=== PATIENT | male | born 1980 | race Caucasian/White ===

== ENCOUNTER 2017-02-11 18:12 | Emergency (ER) | payer BC ==
[2017-02-11] MEDS ORDERED: Sodium Chloride 0.9% 10 ML Syringe FLUSH PRN (18:50)
[2017-02-11] MEDS ORDERED: Ketorolac 30 MG/ML SDV IVPUSH ONE (18:50)
[2017-02-11] MEDS ORDERED: Ondansetron 4 MG/2 ML SDV IVPUSH ONE (18:50)
[2017-02-11] MEDS ORDERED: Iopamidol 612 MG/ML 150 ML Bottle IVPUSH ONE (19:28)
[2017-02-11] MEDS ORDERED: Diatrizoate Meglumine/Diatrizoate Sodium 37% 120 ML Bottle PO ONE (19:29)
--- NOTE | 2017-02-11 19:55 | EDM.PDOC ---
ED HPI GENERAL MEDICAL PROBLEM - General Chief Complaint: Abdominal Pain Stated Complaint: POSS HERNIA Time Seen by Provider: 02/11/17 18:43 Source of Information: Reports: Patient History Limitations: Reports: No Limitations - History of Present Illness INITIAL COMMENTS - FREE TEXT/NARRATIVE: 36 year old male presents for evaluation treatment of left lower quadrant abdominal pain. Reports that the abdominal pain started on Saturday. Reports he was lifting a piano up some stairs. Since then he has had some discomfort in the left lower quadrant that has radiated down to his left groin into his left testicle. No bulging or obvious hernia. He states that he feels like he was "kicked in the crouch ". No abwy-lzh-doxjqnt treatment such as Tylenol or Motrin prior to arrival. He reports associated symptoms of nausea. No fevers, vomiting, diarrhea, constipation, dysuria or hematuria. Reports he did make the appointment with his primary care provider for tomorrow. However, he states that he had a reading about strangulate hernias and was concerned he had with these. Past surgical history includes an appendectomy. Treatments DRIVER GUIDE: Reports: Other (see below) Other Treatments DRIVER GUIDE: none Left Lower Groin Pain Score (Numeric/FACES): 7 - Related Data Allergies Allergy/AdvReac Type Severity Reaction Status Date / Time No Known Allergies Allergy Verified 02/11/17 18:29 Home Meds: Home Meds . [No Known Home Meds] 02/11/17 [History] Past Medical History - Past Surgical History HEENT Surgical History: Reports: Oral Surgery GI Surgical History: Reports: Appendectomy Musculoskeletal Surgical History: Reports: Arthroscopic Knee Social & Family History - Tobacco Use Smoking Status *Q: Never Smoker - Caffeine Use Caffeine Use: Reports: Coffee, Soda, Tea - Recreational Drug Use Recreational Drug Use: No ED ROS GENERAL - Review of Systems Review Of Systems: See Below Constitutional: Reports: Malaise. Denies: Fever GI/Abdominal: Reports: Abdominal Pain (LLQ), Nausea. Denies: Vomiting : Reports: No Symptoms. Denies: Dysuria, Flank Pain Musculoskeletal: Reports: Back Pain (reports low back pain) ED EXAM, GI/ABD - Physical Exam Exam: See Below Exam Limited By: No Limitations General Appearance: Alert, WD/WN, No Apparent Distress Respiratory/Chest: No Respiratory Distress, Lungs Clear Cardiovascular: Normal Peripheral Pulses, Regular Rate, Rhythm, No Murmur GI/Abdominal Exam: Normal Bowel Sounds, Tender (LLQ). No: Hernia Neurological: Alert, Oriented, Normal Cognition Psychiatric: Normal Affect, Normal Mood Skin Exam: Warm, Dry, Normal Color. No: Erythema Course - Vital Signs Last Recorded V/S: Last Vital Signs Temp 36.4 C 02/11/17 18:33 Pulse 70 02/11/17 18:33 Resp 20 02/11/17 18:33 BP 151/82 H 02/11/17 18:33 Pulse Ox 100 02/11/17 18:33 - Orders/Labs/Meds Orders: Active Orders 24 hr Category Date Time Status Peripheral IV Care [RC] . DIRECTED Care 02/11/17 18:51 Active Sodium Chloride 0.9% [Saline Flush] Med 02/11/17 18:50 Active 10 ml FLUSH ASDIRECTED PRN Peripheral IV Insertion Adult [OM.PC] Routine Oth 02/11/17 18:50 Ordered Medication Orders Sodium Chloride (Saline Flush) 10 ml FLUSH ASDIRECTED PRN PRN Reason: Keep Vein Open Last Admin: 02/11/17 19:08 Dose: 10 ml Labs: Laboratory Tests 02/11/17 02/11/17 02/11/17 Range/Units 19:05 19:05 19:05 WBC 7.06 (4.23-9.07) K/mm3 RBC 5.07 (4.63-6.08) M/mm3 Hgb 15.2 (13.7-17.5) gm/L Hct 42.8 (40.1-51.0) % MCV 84.4 (79.0-92.2) fl MCH 30.0 (25.7-32.2) pg MCHC 35.5 (32.2-35.5) g/dl RDW Std Deviation 38.8 (35.1-43.9) fL Plt Count 262 (163-337) K/mm3 MPV 10.3 (9.4-12.3) fl Neutrophils % (Manual) 53 (40-60) % Band Neutrophils % 0 (0-10) % Lymphocytes % (Manual) 34 (20-40) % Atypical Lymphs % 0 % Monocytes % (Manual) 8 (2-10) % Eosinophils % (Manual) 4 (0.8-7.0) % Basophils % (Manual) 1 (0.2-1.2) Platelet Estimate Adequate RBC Morph Comment Normal Sodium 143 (136-145) mEq/L Potassium 3.8 (3.5-5.1) mEq/L Chloride 103 (98-107) mEq/L Carbon Dioxide 31 (21-32) mEq/L Anion Gap 12.8 (5-15) BUN 15 (7-18) mg/dL Creatinine 1.1 (0.7-1.3) mg/dL Est Cr Clr Drug Dosing 91.05 mL/min Estimated GFR (MDRD) > 60 (>60) mL/min BUN/Creatinine Ratio 13.6 L (14-18) Glucose 103 (74-106) mg/dL Calcium 9.3 (8.5-10.1) mg/dL Total Bilirubin 0.5 (0.2-1.0) mg/dL AST 24 (15-37) U/L ALT 33 (16-63) U/L Alkaline Phosphatase 72 (46-116) U/L C-Reactive Protein < 0.2 (<1.0) mg/dL Total Protein 7.4 (6.4-8.2) g/dl Albumin 4.3 (3.4-5.0) g/dl Globulin 3.1 gm/dL Albumin/Globulin Ratio 1.4 (1-2) Urine Color Yellow (Yellow) Urine Appearance Clear (Clear) Urine pH 7.5 (5.0-8.0) Ur Specific [place] 1.020 (1.005-1.030) Urine Protein Negative (Negative) Urine Glucose (UA) Negative (Negative) Urine Ketones Negative (Negative) Urine Occult Blood Negative (Negative) Urine Nitrite Negative (Negative) Urine Bilirubin Negative (Negative) Urine Urobilinogen 1.0 (0.2-1.0) Ur Leukocyte Esterase Negative (Negative) Urine RBC Not seen (0-5) /hpf Urine WBC 0-5 (0-5) /hpf Ur Epithelial Cells 0-5 (0-5) /hpf Urine Bacteria Few (FEW) /hpf Urine Mucus Few (FEW) /hpf Meds: Medications Generic Name Dose Route Start Last Admin Trade Name Freq PRN Reason Stop Dose Admin Sodium Chloride 10 ml 02/11/17 18:50 02/11/17 19:08 Saline Flush FLUSH 10 ml ASDIRECTED PRN Administration Keep Vein Open Discontinued Medications Generic Name Dose Route Start Last Admin Trade Name Edyta PRN Reason Stop Dose Admin Diatrizoate Meglum/Diatrizoate Sod 90 ml 02/11/17 19:29 02/11/17 20:34 Gastrografin 37% PO 02/11/17 19:30 90 ml ONETIME ONE Administration Iopamidol 125 ml 02/11/17 19:28 02/11/17 20:35 Isovue-300 (61%) IVPUSH 02/11/17 19:29 125 ml ONETIME ONE Administration Ketorolac Tromethamine 30 mg 02/11/17 18:50 02/11/17 19:08 Toradol IVPUSH 02/11/17 18:51 30 mg ONETIME ONE Administration Ondansetron HCl 4 mg 02/11/17 18:50 02/11/17 19:06 Zofran IVPUSH 02/11/17 18:51 4 mg ONETIME ONE Administration - Radiology Interpretation Free Text/Narrative:: CT of the abdomen and pelvis with IV and oral contrast impression per Dr. Collier 1. Nothing acute is appreciated on CT of the abdomen and pelvis. - Re-Assessments/Exams Free Text/Narrative Re-Assessment/Exam: 02/11/17 20:59 Patient reports discomfort has improved with the Toradol. Awaiting CT report. Review the lab results with the patient. 02/11/17 21:[address] results with the patient. He reports that his pain is starting to come back reports some discomfort in the left testicle. He declines any further pain medication. We will discharge him home. Discharge instructions as documented. Departure - Departure Time of Disposition: 21:31 Disposition: Home, Self-Care 01 Condition: Fair Clinical Impression: Muscle strain - Discharge Information Instructions: Muscle Strain, [id number] Referrals: PCP,None [Primary Care Provider] - Catina Medrano PROFESSOR OF ASTRONOMY [ED Midlevel Provider] - Forms: ED Department Discharge Additional Instructions: Recommend using [id number] Tylenol or Motrin as needed for pain relief. Use ice or heat to the sore areas. Expect be sore for the next few days. If your symptoms persist beyond 1 week, follow-up with your primary care provider for recheck of your symptoms. Please return to the ER if your symptoms change or worsen. Avoid heavy lifting. Rest but do not be completely immobile. If you are experiencing pain stop what you are doing and rest. - My Orders Last 24 Hours: My Active Orders 02/11/17 18:50 Sodium Chloride 0.9% [Saline Flush] 10 ml FLUSH ASDIRECTED PRN Peripheral IV Insertion Adult [OM.PC] Routine 02/11/17 18:51 Peripheral IV Care [RC] . DIRECTED - Assessment/Plan Last 24 Hours: My Active Orders 02/11/17 18:50 Sodium Chloride 0.9% [Saline Flush] 10 ml FLUSH ASDIRECTED PRN Peripheral IV Insertion Adult [OM.PC] Routine 02/11/17 18:51 Peripheral IV Care [RC] . DIRECTED
--- NOTE | 2017-02-11 21:09 | CT ---
CT abdomen and pelvis Technique: Multiple axial sections were obtained from above the dome of the diaphragm inferiorly through the pubic symphysis. Intravenous and oral contrast was utilized. Delayed images were also obtained through the bladder. Comparison: No prior abdominal or pelvic CT exam. Findings: Visualized lung bases are clear. Liver shows no focal parenchymal abnormality. Spleen appears within normal limits. Kidneys show symmetric contrast enhancement without hydronephrosis or mass. Adrenal glands show no nodule. Pancreas is within normal limits. Gallbladder shows no calcified gallstones. Aorta shows no aneurysmal dilatation. No retroperitoneal adenopathy or mesenteric abnormalities are seen. No pelvic mass or adenopathy is seen. No diverticulosis is seen. No inflammatory change is identified to indicate diverticulitis. Appendix is not visualized with certainty. Delayed images shows contrast within both distal ureters and within the bladder. No inflammatory change or free fluid is seen. Bone window settings were reviewed to appears within normal limits for the patient's age. Impression: 1. Nothing acute is appreciated on CT study of the abdomen and pelvis. Diagnostic code #1
== END 2017-02-11 21:37 | disposition home or self-care (01) ==
LOC: JD.ED 18:12
DX: S39.011A Strain of muscle, fascia and tendon of abdomen, initial encounter (principal); X50.0XXA Overexertion from strenuous movement or load, initial encounter
CPT/HCPCS: 36415; 74177; 80053; 81001; 85025; 86140; 96374; 96375; 99284; J1885; J2405; J7050; Q9963; Q9967

== ENCOUNTER 2019-07-08 22:47 | Emergency (ER) | payer BC ==
[2019-07-08] MEDS ORDERED: Lactated Ringers 1,000 ML IV ONE (23:02)
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
[2019-07-08] MEDS ORDERED: HYDROmorphone 1 MG/ML Syringe IVPUSH ONE (23:34)
[2019-07-09] MEDS ORDERED: Cyclobenzaprine 10 MG Tab PO ONE (02:09)
[2019-07-09] MEDS ORDERED: Acetaminophen/HYDROcodone 325-5 MG Tab PO ONE ×2 (02:09→02:10)
--- NOTE | 2019-07-09 07:56 | CT ---
CT chest Technique: Multiple axial sections were obtained from above the lung apices inferiorly through the lung bases. Intravenous contrast was utilized. Comparison: No prior chest imaging is available. Findings: Mediastinum and hilar regions appear within normal limits. No mediastinal hematoma or adenopathy is seen. Aorta shows no aneurysm. No axillary adenopathy is seen. No pericardial thickening is seen. Lungs are clear. No acute parenchymal change is seen. No pneumothorax or pleural effusions are seen. Bone window settings were reviewed which shows no discrete osseous abnormality. Impression: 1. Nothing acute is identified on CT study of the chest. Diagnostic code #1 Agree with preliminary report issued by [email or web address] ([employer] preliminary report dictated on 07/09/19, 1:37 AM Central Time) CT abdomen and pelvis Technique: Multiple axial sections were obtained from above the dome of the diaphragm inferiorly through the pubic symphysis. Intravenous contrast was utilized. No oral contrast has been given. Findings: Small calcification is noted within the right lobe of the liver most likely representing an incidental granuloma. No additional abnormality is appreciated within the liver. Spleen appears within normal limits. Adrenal glands show no nodule. Pancreas is within normal limits. Kidneys show symmetric contrast enhancement without hydronephrosis or mass. Gallbladder contains no calcified gallstones. Aorta shows no aneurysm. No retroperitoneal adenopathy or mesenteric abnormalities are seen. No pelvic mass or adenopathy is seen. No free fluid or inflammatory change is seen. Delayed images were obtained which shows normal contrast excretion from both kidneys. Ureters are opacified into the bladder. No contrast extravasation is seen. Bone window settings were reviewed which shows no discrete acute osseous finding. Impression: 1. Nothing acute is appreciated on CT study of the abdomen and pelvis. Diagnostic code #2 I agree with preliminary report issued by [email or web address] ([employer] preliminary report dictated on 07/09/19, 1:39 AM Central Time) Study was dictated in MDT
--- NOTE | 2019-07-09 07:56 | CT ---
CT lumbar spine Technique: Multiple axial sections through the lumbar spine were obtained. Reconstructed coronal and sagittal images were obtained. Comparison: No prior lumbar spine imaging is available. Minimal posterior disc space narrowing at L4-L5 is noted. Diffuse posterior disc bulge is noted at L4-L5 with mild right-sided neural foraminal stenosis being seen. Other disks are fairly well contained. Vertebral body heights are maintained. No fracture is noted. No abnormal subluxation is seen. Impression: 1. Broad-based disc bulge posteriorly at L4-L5 with right-sided neural foraminal stenosis. 2. Nothing acute is appreciated on CT study of the lumbar spine. Diagnostic code #2 I agree with preliminary report issued by [employer] ([employer] preliminary report dictated on 07/09/19, 1:42 AM Central Time) Study was dictated in MDT
--- NOTE | 2019-07-09 07:56 | CT ---
CT thoracic spine Technique: Multiple axial sections through the thoracic spine were obtained. Reconstructed sagittal and coronal images were obtained. Comparison: No prior thoracic spine imaging is available. Findings: Vertebral body heights are maintained. Vertebral bodies and posterior arches are intact. No fracture is identified. No bony central or bony neural foraminal stenosis is seen. No gross disc herniation is appreciated. Impression: 1. Nothing acute is appreciated on CT study of the thoracic spine. Diagnostic code #1 Agree with preliminary report issued by [facility] ([facility] preliminary report dictated on 07/09/19, 1:34 AM Central Time) Study was dictated in MDT
== END 2019-07-09 02:35 | disposition home or self-care (01) ==
LOC: JD.ED 22:47
DX: S39.92XA Unspecified injury of lower back, initial encounter (principal); V86.56XA Driver of dirt bike or motor/cross bike injured in nontraffic accident, initial encounter
CPT/HCPCS: 36415; 71260; 72129; 72132; 74177; 80053; 81003; 85025; 86850; 86900; 86901; 96361; 96374; 99284; A9270; J1170; J7120; 99283

== ENCOUNTER 2019-11-15 17:17 | Emergency (ER) | payer BC ==
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
--- NOTE | 2019-11-15 18:41 | CR ---
Left ankle: 4 views left ankle were obtained. Comparison: No prior ankle study. Ankle mortise is symmetric. Soft tissue swelling is identified. No acute fracture, dislocation or other bony abnormality appreciated. Impression: 1. Soft tissue swelling. No acute bony bony abnormality is appreciated. Diagnostic code #1 This report was dictated in MDT
== END 2019-11-15 19:03 | disposition home or self-care (01) ==
LOC: JD.ED 17:17
DX: S90.02XA Contusion of left ankle, initial encounter (principal); V86.96XA Unspecified occupant of dirt bike or motor/cross bike injured in nontraffic accident, initial encounter
CPT/HCPCS: 73610-26-LT; 73610-LT; 99282; 99283-25

== ENCOUNTER 2022-11-26 17:38 | Emergency (ER) | payer BC ==
[2022-11-26] MEDS ORDERED: Sodium Chloride 0.9% 10 ML Syringe FLUSH PRN (18:17)
[2022-11-26] MEDS ORDERED: Sodium Chloride 0.9% 1,000 ML IV ONE (18:17)
[2022-11-26] MEDS ORDERED: Ondansetron 4 MG/2 ML SDV IVPUSH ONE (18:17)
[2022-11-26] MEDS ORDERED: Aluminum Hydroxide/Magnesium Hydroxide/Simethicone Susp 30 ML Cup PO ONE (18:17)
[2022-11-26] MEDS ORDERED: Pantoprazole 40 MG Vial IVPUSH ONE (18:18)
[2022-11-26 18:24] LABS: BASOPHILS ABSOLUTE AUTO 0.02 K/mm3 (0.01-0.08); BASOPHILS PERCENT AUTO 0.3 % (0.1-1.2); EOSINOPHILS ABSOLUTE AUTO 0.09 K/mm3 (0.04-0.54); EOSINOPHILS PERCENT AUTO 1.2 (0.8-7.0); HEMOGLOBIN 15.8 gm/dl (13.7-17.5); IMMATURE GRAN ABSOLUTE AUTO 0.02 K/mm3 (0.00-0.10); IMMATURE GRAN PERCENT AUTO 0.3 % (<=1.0); LYMPHOCYTES ABSOLUTE AUTO 2.68 K/mm3 (1.32-3.57); LYMPHOCYTES PERCENT AUTO 34.3 % (21.8-53.1); MEAN CORPUSCULAR HEMOGLOBIN 30.4 pg (25.7-32.2); MEAN CORPUSCULAR HGB CONC 35.9 g/dl (32.2-35.5); MEAN CORPUSCULAR VOLUME 84.8 fl (79.0-92.2); MEAN PLATELET VOLUME 10.3 fl (9.4-12.3); MONOCYTES ABSOLUTE AUTO 0.86 K/mm3 (0.30-0.82); NEUTROPHILS ABSOLUTE AUTO 4.14 K/mm3 (1.78-5.38); NEUTROPHILS PERCENT AUTO 52.9 % (34.0-67.9); PLATELET COUNT,PLT 279 K/mm3 (163-337); RED BLOOD CELL COUNT 5.19 M/mm3 (4.63-6.08); WHITE BLOOD CELL COUNT,WBC 7.81 K/mm3 (4.23-9.07)
[2022-11-26 18:25] LABS: APPEARANCE,URINE SLT CLOUDY (Clear); BILIRUBIN,URINE NEGATIVE (Negative); COLOR,URINE YELLOW (Yellow); GLUCOSE,URINE NEGATIVE (Negative); KETONES,URINE NEGATIVE (Negative); LEUKOCYTE ESTERASE,URINE NEGATIVE (Negative); NITRITE,URINE NEGATIVE (Negative); OCCULT BLOOD,URINE NEGATIVE (Negative); PH,URINE 5.5 (5.0-8.0); PROTEIN,URINE NEGATIVE (Negative); UROBILINOGEN,URINE 0.2 (0.2-1.0)
[2022-11-26 18:33] LABS: A/G RATIO 1.4 (1-2); ALANINE AMINOTRANSFERASE,ALT 34 U/L (16-63); ALBUMIN 4.4 g/dl (3.4-5.0); ALKALINE PHOSPHATASE 68 U/L (46-116); ANION GAP 15.7 (5-15); ASPARTATE AMNIOTRANSFERASE,AST 24 U/L (15-37); BILIRUBIN TOTAL 0.6 mg/dL (0.2-1.0); BLOOD UREA NITROGEN,BUN 16 mg/dL (7-18); BUN/CREATININE RATIO 13.3 (14-18); C-REACTIVE PROTEIN <0.2 mg/dL (<1.0); CALCIUM 9.3 mg/dL (8.5-10.1); CARBON DIOXIDE,CO2 25 mEq/L (21-32); CHLORIDE,CL 105 mEq/L (98-107); CREATININE 1.2 mg/dL (0.7-1.3); EST CRCL DRUG DOSING (CG) 78.56 mL/min; ESTIMATED GFR 76 mL/min (>60); GAMMA GLUTAMYL TRANSFERASE,GGT 26 U/L (15-85); GLUCOSE RANDOM 81 mg/dL (70-99); LIPASE 69 U/L (73-393); MAGNESIUM 2.1 mg/dL (1.8-2.4); POTASSIUM,K 3.7 mEq/L (3.5-5.1); PROTEIN TOTAL,TP 7.5 g/dl (6.4-8.2); SODIUM,NA 142 mEq/L (136-145)
[2022-11-26] MEDS ORDERED: Iopamidol 612 MG/ML 100 ML Bottle IVPUSH ONE (18:33)
[2022-11-26 18:34] LABS: BACTERIA,URINE OCCASIONAL /hpf (FEW); RBC,URINE 0-5 /hpf (0-5); SQUAMOUS EPITHELIAL CELLS,UR 0-5 /hpf (0-5); WBC,URINE 0-5 /hpf (0-5)
[2022-11-26 18:35] LABS: MUCUS,URINE FEW /hpf (FEW)
== END 2022-11-26 19:42 | disposition home or self-care (01) ==
LOC: JD.ED 17:38
DX: R10.10 Upper abdominal pain, unspecified (principal)
CPT/HCPCS: 36415; 74177; 80053; 81001; 82977; 83690; 83735; 85025; 86140; 96361; 96374; 96375; 99284; A9270; C9113; J2405; J3490; J7030; Q9967; 99283

== ENCOUNTER 2024-05-05 05:28 | Emergency (ER) | payer BC ==
[2024-05-05] MEDS ORDERED: Sodium Chloride 0.9% 10 ML Syringe FLUSH PRN (05:55)
[2024-05-05] MEDS: Ketorolac 15 MG/ML SDV IVPUSH ONE (06:04)
[2024-05-05 06:08] LABS: BASOPHILS PERCENT AUTO 0.5 % (0.0-1.0); EOSINOPHILS ABSOLUTE AUTO 0.1 K/mm3 (0.0-0.4); EOSINOPHILS PERCENT AUTO 1.7 % (0.0-6.0); HEMATOCRIT 45.4 % (42.0-52.0); HEMOGLOBIN 15.9 gm/dl (14.0-18.0); IMMATURE GRAN ABSOLUTE AUTO 0.02 K/mm3 (0.00-0.05); IMMATURE GRAN PERCENT AUTO 0.3 % (0.0-0.4); LYMPHOCYTES ABSOLUTE AUTO 2.4 K/mm3 (1.0-4.8); MEAN CORPUSCULAR HEMOGLOBIN 30.1 pg (28.0-32.0); MEAN CORPUSCULAR VOLUME 85.8 fl (83.0-99.0); MEAN PLATELET VOLUME 9.8 fl (9.4-12.4); MONOCYTES ABSOLUTE AUTO 0.6 K/mm3 (0.0-0.8); MONOCYTES PERCENT AUTO 9.6 % (0.0-8.0); NEUTROPHILS PERCENT AUTO 48.9 % (41.0-71.0); PLATELET COUNT,PLT 258 K/mm3 (150-400); RED BLOOD CELL COUNT 5.29 M/mm3 (4.52-5.90); WHITE BLOOD CELL COUNT,WBC 6.05 K/mm3 (3.9-11.3)
[2024-05-05 06:22] LABS: APPEARANCE,URINE CLEAR (Clear); BILIRUBIN,URINE NEGATIVE (Negative); COLOR,URINE YELLOW (Yellow); GLUCOSE,URINE NEGATIVE (Negative); KETONES,URINE NEGATIVE (Negative); LEUKOCYTE ESTERASE,URINE NEGATIVE (Negative); NITRITE,URINE NEGATIVE (Negative); OCCULT BLOOD,URINE NEGATIVE (Negative); PROTEIN,URINE NEGATIVE (Negative); UROBILINOGEN,URINE 0.2 (0.2-1.0)
[2024-05-05] MEDS: Morphine 4 MG/ML Syringe IVPUSH ONE (06:37)
[2024-05-05 06:44] LABS: A/G RATIO 1.5 (1-2); ALBUMIN 4.3 g/dl (3.4-5.0); BILIRUBIN TOTAL 0.6 mg/dL (0.2-1.0); CALCIUM 9.4 mg/dL (8.5-10.1); CREATININE 1.2 mg/dL (0.7-1.3); EST CRCL DRUG DOSING (CG) 77.74 mL/min; PROTEIN TOTAL,TP 7.2 g/dl (6.4-8.2)
== END 2024-05-05 11:15 | disposition home or self-care (01) ==
LOC: JD.ED 05:28
DX: M51.369 Other intervertebral disc degeneration, lumbar region without mention of lumbar back pain or lower extremity pain (principal)
CPT/HCPCS: 36415; 70250; 70250-26; 72131; 72131-26; 72148; 72148-26; 80053; 81003; 85025; 96374; 96375; 99284; 99284-25; J1885; J2270